=== PATIENT | male | born 1960 | race Caucasian/White ===

== ENCOUNTER → 2025-09-06 | Outpatient (CLI) | payer OTHER, SELFPAY ==
--- NOTE | 2025-09-06 18:12 | CT_ITS ---
PROCEDURE: ABDOMEN/PELVIS W IV CONT ONLY 09/06/2025 REASON FOR EXAM: HEMATURIA TECHNIQUE: Procedure Code: [id number] Modality: CT Procedure: ABDOMEN/PELVIS W IV CONT ONLY Coronal and Sagittal reconstruction series were provided. CONTRAST: Isovue 370 VOLUME: 100 mL One or more dose reduction techniques were used (e.g., Automated exposure control, adjustment of the mA and/or kV according to patient size, use of iterative reconstruction technique. RADIATION DOSE SUMMARY: CTDlvol: 18.09 MGy DLP: 926.52 MGycm COMPARISON: None FINDINGS: The liver is normal in size. Tiny right hepatic lobe hypodense focus is seen, too small to characterized. No intra- or extrahepatic biliary duct dilatation is identified. The hepatic vasculature is patent. The gallbladder fossa is unremarkable. The spleen, pancreas, and adrenal glands are unremarkable. The kidneys are normal in size and attenuation with lobulated contour. There is no hydronephrosis or perinephric fat stranding. Few bilateral scattered 1-2 mm non obstructive renal calculi are identified. Few small bilateral simple cortical renal cysts are noted. The ureters are normal in caliber and no ureteral calculi are seen. No focal or diffuse bowel wall thickening or bowel obstruction is identified. The appendix is not visualized. The abdominal aorta and its branches demonstrate atheromatous calcification without evidence of aneurysm. The inferior vena cava appears unremarkable. No adenopathy is seen. Small fat containing umbilical hernia is noted. No free intraperitoneal fluid, fluid collection or free air is identified. The urinary bladder is partially distended and show no abnormalities. Enlarged prostate measures 6.2 x 5.2 cm along its maximum axial dimensions abutting the base of the urinary bladder and showing heterogenous enhancement, recommend correlation with PSA levels. No aggressive-appearing osseous lesions are identified. Mild degenerative changes are present in the spine. The included lower chest cuts show few bilateral scattered 1-2 mm subpleural nodules, recommend dedicated assessment if needed. CT/Abdomen/Pelvis W IV Cont ONLY IMPRESSION: No acute abnormalities detected. Few bilateral scattered 1-2 mm non obstructive renal calculi. Enlarged prostate abutting the base of the bladder, recommend correlation with PSA levels. Small fat containing umbilical hernia. Few bilateral scattered 1-2 mm subpleural pulmonary nodules, recommend dedicate d CT assessment if needed. Reading [facility]
== END | disposition home or self-care (01) ==
PROVIDERS: PCP Family Medicine; Referring Provider Urology; Visit Provider Urology
DX: R31.21 Asymptomatic microscopic hematuria (principal)
CPT/HCPCS: 74177; Q9967